=== PATIENT | male | born 1970 | race Hispanic/Latino ===

== ENCOUNTER 2019-06-05 03:14 | Emergency (ER) | payer SELFPAY ==
[~2019-06-05] VITALS: Ht 172.7 cm; Wt 90.7 kg
--- NOTE | ~2019-06-05 | EKG ---
[facility] [address] [facility] [place], [place] [address] Draft EK completed, results pending confirmation PATIENT NAME: OZIEL DELUNAO Electrocardiogram DATE OF : 70 PHYSICIAN: PRELIMINARY REPORT #: [id number] REPORT IS CONFIDENTIAL AND NOT TO BE RELEASED WITHOUT AUTHORIZATION
[2019-06-05] MEDS ORDERED: AMOXICILLIN500 MG PO (04:24)
== END 2019-06-05 04:40 | disposition home or self-care (01) ==
LOC: ED 03:14
DX: J02.9 Acute pharyngitis, unspecified (principal); F17.200 Nicotine dependence, unspecified, uncomplicated
CPT/HCPCS: 80053; 85025; 86308; 87081; 87502; 87880; 93005; 93010; 96360; 99283-25; J7030